=== PATIENT | female | born 2000 | race Caucasian/White ===

== ENCOUNTER 2023-01-03 10:45 | Emergency (ER) | payer MEDICAID ==
[~2023-01-03] VITALS: Ht 157.5 cm; Wt 47.7 kg
[2023-01-03 11:04] LABS: BASO # 0.03 K/mm3 (0.02-0.10); HEMATOCRIT 42.8 % (37.0-47.0); HEMOGLOBIN 14.4 g/dL (12.5-16.0); LYMPH# 1.68 K/mm3 (1.50-4.00); MEAN CELL VOLUME 89 fl (78-100); MEAN CORPUSCULAR HEMOGLOBIN 30 pg (27-31); MEAN CORPUSCULAR HGB CONC 34 g/dL (33-37); MEAN PLATELET VOLUME 10.2 fl (7.4-10.4); MONO # 0.82 K/mm3 (0.20-0.80); NEU # 16.42 K/mm3 (1.40-6.50); PLATELET COUNT 342 K/mm3 (130-400); RED BLOOD COUNT 4.82 M/mm3 (4.10-5.30)
[2023-01-03 11:11] LABS: ALBUMIN 4.9 g/dL (3.5-5.0); POTASSIUM 3.5 mmol/L (3.5-5.1); SODIUM 141 mmol/L (136-145)
[2023-01-03 11:13] LABS: CALCIUM 9.9 mg/dL (8.3-10.5)
[2023-01-03 11:14] LABS: GLUCOSE 133 mg/dL (65-105); TOTAL PROTEIN 8.2 g/dL (6.4-8.3)
[2023-01-03 11:15] LABS: CARBON DIOXIDE 21 mmol/L (22-29)
[2023-01-03 11:16] LABS: TOTAL BILIRUBIN 0.4 mg/dL (0.2-1.2)
[2023-01-03 11:19] LABS: AST-SGOT 39 U/L (5-34)
[2023-01-03 11:20] LABS: ALT/SGPT 40 U/L (0-55)
[2023-01-03] MEDS ORDERED: TYLENOL325 M1 PO (11:29)
[2023-01-03 11:30] LABS: TROPONIN-I < 0.030 ng/mL (<0.030)
[2023-01-03 13:04] LABS: URINE APPEARANCE CLEAR; URINE COLOR YELLOW; URINE PROTEIN(semi-quant) TRACE (NEGATIVE)
[2023-01-03 13:05] LABS: URINE BILIRUBIN NEGATIVE (NEGATIVE); URINE BLOOD TRACE (NEGATIVE); URINE GLUCOSE NEGATIVE (NEGATIVE); URINE KETONE NEGATIVE (NEGATIVE); URINE LEUKOCYTE ESTERASE NEGATIVE (NEGATIVE); URINE NITRATE NEGATIVE (NEGATIVE); URINE UROBILINOGEN NORMAL (NORMAL)
[2023-01-03 15:00] VITALS: BP 102/69
== END 2023-01-03 15:06 | disposition home or self-care (01) ==
LOC: ED 10:45
PROVIDERS: Family Medicine
DX: S50.11XA Contusion of right forearm, initial encounter (principal); S00.212A Abrasion of left eyelid and periocular area, initial encounter; R00.2 Palpitations; R53.81 Other malaise; R53.83 Other fatigue; F14.10 Cocaine abuse, uncomplicated; Z28.310 Unvaccinated for COVID-19; X58.XXXA Exposure to other specified factors, initial encounter
CPT/HCPCS: J2060; J7030